=== PATIENT | male | born 1935 | race Caucasian/White ===

== ENCOUNTER 2017-08-06 08:12 | Emergency (ER) | payer MEDICARE, BC ==
--- NOTE | 2017-08-06 10:04 | RAD ---
LEFT ANKLE 3 VIEWS: Date: 08/06/17 HISTORY: Patient tripped yesterday, pain to left ankle. 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 There are prominent calcaneal spurs. There are no signs of fracture. Soft tissue swelling is present. IMPRESSION: No evidence of fracture. POS: [facility]
== END 2017-08-06 09:12 | disposition home or self-care (01) ==
LOC: SCSER 08:12
DX: S93.402A Sprain of unspecified ligament of left ankle, initial encounter (principal); Z79.82 Long term (current) use of aspirin; Z79.899 Other long term (current) drug therapy; W18.40XA Slipping, tripping and stumbling without falling, unspecified, initial encounter